=== PATIENT | male | born 1990 | race Caucasian/White ===

== ENCOUNTER 2016-06-08 11:18 | Emergency (ER) | payer MEDICAID ==
--- NOTE | 2016-06-08 12:23 | Diagnostic Imaging Report ---
CT scan of the brain without contrast History: Headache, trauma Total DLP equals 640 CTDI equals 35.9 Axial sections were obtained from the base of the skull to the vertex. There is a normal ventricular system size. No focal parenchymal lesions are seen. No evidence of any mass effect or shift of midline structures. No extra-axial masses or abnormal fluid collections. Soft tissue swelling noted over the frontal region of the skull. Impression: 1. No acute intracerebral abnormalities 2. Soft tissue swelling over the frontal region of the skull
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
== END 2016-06-08 12:55 | disposition home or self-care (01) ==
LOC: ER 11:18
DX: S09.90XA Unspecified injury of head, initial encounter (principal); X58.XXXA Exposure to other specified factors, initial encounter; Y93.89 Activity, other specified; Y92.89 Other specified places as the place of occurrence of the external cause; Y99.8 Other external cause status
CPT/HCPCS: 70450-TC; Z7502